=== PATIENT | female | born 1995 | race African-American/Black ===

== ENCOUNTER 2018-10-03 15:08 | Inpatient (IN) | payer OTHER ==
[2018-10-03 16:00] LABS: APPEARANCE,URINE CLEAR; BILIRUBIN,URINE NEGATIVE (NEGATIVE); COLOR,URINE YELLOW; GLUCOSE, URINE NEGATIVE (NEGATIVE); KETONES,URINE NEGATIVE (NEGATIVE); LEUKOCYTE ESTERASE,URINE NEGATIVE (NEGATIVE); NITRITE,URINE NEGATIVE (NEGATIVE); PROTEIN,URINE NEGATIVE (NEGATIVE); URINE SPECIFIC GRAVITY 1.013; UROBILINOGEN,URINE NEGATIVE mg/dL (<2.0)
[2018-10-03 16:18] LABS: URINE AMPHETAMINES SCREEN NEGATIVE; URINE BARBITURATES SCREEN NEGATIVE; URINE BENZODIAZEPINES SCREEN NEGATIVE; URINE COCAINE SCREEN NEGATIVE; URINE MARIJUANA (THC) SCREEN NEGATIVE; URINE METHADONE SCREEN NEGATIVE; URINE PHENCYCLIDINE SCREEN NEGATIVE
[2018-10-03] MEDS ORDERED: RINGERS SOLUTION,LACTATED 1,000 ML IV PRN (16:34)
--- NOTE | 2018-10-03 16:47 | Admission Physical ---
Datetime Report Generated by CPN: 10/03/2018 16:46 CURRENT ADMISSION Chief Complaint: Uterine Contractions Indication for Induction: Not Applicable Admit Impression : Active Labor Admit Plan: Admit to Unit; Initiate Labor Protocol ALLERGIES Medication Allergies: No Medication Allergies: No Known Allergies (10/03/2018) Latex: No Latex Allergies OBSTETRICAL HISTORY EDC: 09/26/2018 00:00 : 1 Para: 0 Term: 0 : 0 SAB: 0 IAB: 0 Ectopic: 0 Livin Cesareans: 0 VBACs: 0 Multiple Births: 0 MEDICAL HISTORY Other Medical Diseases: Yes Medical History Comments: ULCERATIVE COLITIS PHYSICAL EXAM General: Normal HEENT: Deferred Neurologic: Normal Thyroid: Deferred Heart: Normal Lungs: Normal Breast: Deferred Back: Deferred Abdomen: Normal Genitourinary Exam: Normal Extremities: Normal DTRs: Deferred Pelvic Type: Adequate Vital Signs: Reviewed VAGINAL EXAM Dilatation: 3 Effacement: 100 Station: -1 Contraction Comments: 2-3 min MEMBRANES Membranes: Intact FETUS A EGA: 41.0 Monitoring: External US FHR- Baseline: 145 Variability: Moderate 6-25bpm Decelerations: None Presentation: Vertex Admit Comment: Hx Ulcerative Colitis Transfer from [place] 34 wks KAY by LMP Anatomy completed INFORMED CONSENT Assignment: Tessa Ro MD Signature: with User ID: [email or web address] : with User ID: [email or web address]
[2018-10-03 17:03] LABS: ABSOLUTE EOSINOPHILS # (AUTO) 0.1 10^3/uL (0.0-0.6); ABSOLUTE LYMPHOCYTES (AUTO) 1.8 10^3/uL (0.5-4.7); ABSOLUTE MONOCYTES (AUTO) 1.3 10^3/uL (0.1-1.4); ABSOLUTE NEUT (AUTO) 10.9 10^3/uL (1.7-8.2); BASOPHILS % (AUTO) 0.2 % (0-2); EOSINOPHILS % (AUTO) 0.4 % (0-6); HEMOGLOBIN 13.1 g/dL (12.0-15.5); LYMPHOCYTES % (AUTO) 12.9 % (13-45); MEAN CORPUSCULAR HEMOGLOBIN 31.1 pg (27.0-33.4); MEAN CORPUSCULAR HGB CONC 33.5 g/dL (32.0-36.0); MEAN CORPUSCULAR VOLUME 93 fl (80-97); MONOCYTES % (AUTO) 9.5 % (3-13); PLATELET COUNT 196 10^3/uL (150-450); RED CELL DISTRIBUTION WIDTH 14.6 % (11.5-14.0); TOTAL CELLS COUNTED % (AUTO) 100 %; WHITE BLOOD COUNT 14.2 10^3/uL (4.0-10.5)
[2018-10-03] MEDS ORDERED: OXYTOCIN 10 UNIT/ML VIAL ONE (17:31)
[2018-10-03] MEDS ORDERED: OXYTOCIN/NORMAL SALINE 20 UNIT/1,000 ML RTUINJ ONE (17:32)
[2018-10-03] MEDS ORDERED: LIDOCAINE 1% INJ-PF (10 MG/ML) 30 ML SDV ONE (17:32)
[2018-10-03] MEDS ORDERED: MISOPROSTOL 0.2 MG TABLET ONE (17:32)
[2018-10-03] MEDS ORDERED: EPHEDRINE SULFATE INJ 50 MG/1 ML AMPULE ONE (19:48)
[2018-10-03] MEDS ORDERED: BUPIVACAINE HCL 0.25 % INJ/PF (2.5 MG/1 ML) 30 ML VIAL ONE (19:48)
[2018-10-03] MEDS ORDERED: FENTANYL/BUPIVACAINE/NS/PF 300 MCG/150 ML RTUINJ EPI ONE (19:48)
[2018-10-04] MEDS ORDERED: PROMETHAZINE HCL 25 MG TABLET PO PRN (00:44)
[2018-10-04] MEDS ORDERED: DIBUCAINE 1% OINTMENT 56 GM TP PRN (00:44)
[2018-10-04] MEDS ORDERED: PROMETHAZINE HCL INJ 25 MG/1 ML VIAL IV PRN (00:44)
[2018-10-04] MEDS ORDERED: DIPHENHYDRAMINE HCL 25 MG CAPSULE PO PRN (00:44)
[2018-10-04] MEDS ORDERED: BENZOCAINE/MENTHOL AEROSOL SPRAY 56 ML TOP PRN (00:44)
[2018-10-04] MEDS ORDERED: NA PHOS,M-B/NA PHOS,DI-BA (ADULT) 133 ML ENEMA PR PRN (00:44)
[2018-10-04] MEDS ORDERED: MAGNESIUM HYDROXIDE SUSP 30 ML UDCUP PO PRN (00:44)
[2018-10-04] MEDS ORDERED: PROMETHAZINE HCL 25 MG SUPP.RECT PR PRN (00:44)
[2018-10-04] MEDS ORDERED: ACETAMINOPHEN 650 MG SUPP.RECT PR PRN (00:44)
[2018-10-04] MEDS ORDERED: GLYCERIN/WITCH HAZEL LEAF 1 EACH MED..WIPE TP PRN (00:44)
[2018-10-04] MEDS ORDERED: PSEUDOEPHEDRINE HCL 30 MG TABLET PO PRN (00:44)
[2018-10-04] MEDS ORDERED: ACETAMINOPHEN WITH CODEINE #3 TABLET PO PRN ×2 (00:44)
[2018-10-04] MEDS ORDERED: ZOLPIDEM TARTRATE 5 MG TABLET PO PRN (00:44)
[2018-10-04] MEDS ORDERED: DIPH/PERTUSS(ACELL)/TETANUS VAC/PF 0.5 ML SYR (>=10YO) IM PRN (00:44)
[2018-10-04] MEDS ORDERED: MEASLES,MUMPS&RUBELLA VACC/PF 0.5 ML VIAL SUBCUT PRN (00:44)
[2018-10-04] MEDS ORDERED: OXYTOCIN/NORMAL SALINE 20 UNIT/1,000 ML RTUINJ IV PRN (00:44)
--- NOTE | 2018-10-04 01:15 | Warning Signs in Babies ---
VOD Warning Signs Datetime Report Generated by [facility]: 10/04/2018 01:14 VOD#608 -Warning Signs in Babies: Needs to be viewed. (10/04/2018 00:45:Bonnie Menjivar RN)
[2018-10-04] MEDS ORDERED: ACETAMINOPHEN 325 MG TABLET ONE (02:44)
[2018-10-04] MEDS ORDERED: AMPICILLIN SOD/SULBACTAM 3 GM VIAL IV SCH (02:45)
[2018-10-04] MEDS ORDERED: AMPICILLIN SOD/SULBACTAM 3 GM VIAL ONE (02:45)
[2018-10-04] MEDS ORDERED: MISOPROSTOL 0.2 MG TABLET ONE (02:47)
[2018-10-04] MEDS ORDERED: AMPICILLIN SOD/SULBACTAM 3 GM VIAL IV PRN (02:51)
[2018-10-04] MEDS: AMPICILLIN SODIUM/SULBACTAM NA 3 GM in NORMAL SALINE 100 ML IV SCH ×3 (02:59→19:17)
[2018-10-04] MEDS: IBUPROFEN 800 MG TABLET PO SCH ×3 (06:59→23:21)
[2018-10-04] MEDS: DOCUSATE SODIUM 100 MG CAPSULE PO SCH ×2 (10:50→19:17)
[2018-10-04] MEDS: FERROUS SULFATE 325 MG TABLET PO SCH ×2 (10:50→19:17)
[2018-10-04] MEDS: FAMOTIDINE 20 MG TABLET PO SCH ×2 (10:50→23:21)
[2018-10-04] MEDS: PRENATAL VITAMIN W DHA CAPSULE PO SCH (10:50)
[2018-10-04] MEDS: SENNOSIDES/DOCUSATE 8.6-50 MG 1 EACH TABLET PO SCH (10:50)
--- NOTE | 2018-10-04 10:50 | PDOC PROGRESS REPORT ---
Subjective-OB Progress Note for:: 10/04/18 Subjective: Pt doing well, resting with at bedside. She reports light bleeding, reg diet this am and voiding without difficulty. Physical Exam (OB) Vital Signs: Temp Pulse Resp BP Pulse Ox 97.8 F 90 18 126/78 H 100 10/04/18 07:30 10/04/18 07:30 10/04/18 07:30 10/04/18 07:30 10/04/18 07:30 Intake & Output 10/03/18 10/04/18 10/05/18 06:59 06:59 06:59 Intake Total 100 1000 Balance 100 1000 Weight 86.9 kg - Lochia Lochia Amount: Small 10-25 ml Lochia Color: Rubra/Red - Abdomen Description: Soft, Round Hernia Present: No Fundal Description: Firm, Midline Fundal Height: u/u - u/2 Objective-Diagnostic Laboratory: 10/03/18 16:53 10/03/18 10/03/18 10/03/18 15:20 16:53 16:53 WBC 14.2 H RBC 4.20 Hgb 13.1 Hct 39.0 MCV 93 MCH 31.1 MCHC 33.5 RDW 14.6 H Plt Count 196 Seg Neutrophils % 77.0 Lymphocytes % 12.9 L Monocytes % 9.5 Eosinophils % 0.4 Basophils % 0.2 Absolute Neutrophils 10.9 H Absolute Lymphocytes 1.8 Absolute Monocytes 1.3 Absolute Eosinophils 0.1 Absolute Basophils 0.0 Urine Color YELLOW Urine Appearance CLEAR Urine pH 7.0 Ur Specific [place] 1.013 Urine Protein NEGATIVE Urine Glucose (UA) NEGATIVE Urine Ketones NEGATIVE Urine Blood NEGATIVE Urine Nitrite NEGATIVE Ur Leukocyte Esterase NEGATIVE Blood Type O POSITIVE Antibody Screen NEGATIVE Assessment and Plan(PN) - Time Spent with Patient Time with patient: Less than 15 minutes Medications reviewed and adjusted accordingly: Yes - Disposition Anticipated Discharge: Home Within: within 24 hours
[2018-10-05] MEDS: IBUPROFEN 800 MG TABLET PO SCH ×3 (05:59→22:14)
[2018-10-05 07:22] LABS: HEMATOCRIT 34.3 % (36.0-47.0); HEMOGLOBIN 11.5 g/dL (12.0-15.5); MEAN CORPUSCULAR HEMOGLOBIN 30.9 pg (27.0-33.4); MEAN CORPUSCULAR HGB CONC 33.4 g/dL (32.0-36.0); MEAN CORPUSCULAR VOLUME 93 fl (80-97); PLATELET COUNT 196 10^3/uL (150-450); RED BLOOD COUNT 3.71 10^6/uL (3.72-5.28); RED CELL DISTRIBUTION WIDTH 14.7 % (11.5-14.0); WHITE BLOOD COUNT 13.4 10^3/uL (4.0-10.5)
--- NOTE | 2018-10-05 09:04 | PDOC DISCHARGE SUMMARY ---
Final Diagnosis Discharge Date: 10/05/18 - Final Diagnosis (1) Active labor at term Is this a current diagnosis for this admission?: Yes (2) (normal spontaneous vaginal delivery) Is this a current diagnosis for this admission?: Yes Discharge Data - Discharge Medication Home Medications: No122/Iron/Folic Acid [ Multi Tablet] 1 tab PO DAILY 10/03/18 Reason(s) for Admission: Onset of Labor Procedures: NST Intrapartum Procedure(s): Spontaneous Vaginal Delivery - Diagnosis Test Laboratory: Temp Pulse Resp BP Pulse Ox 97.8 F 77 18 126/74 H 99 10/04/18 19:36 10/04/18 19:36 10/04/18 19:36 10/04/18 19:36 10/04/18 19:36 10/03/18 10/03/18 10/05/18 15:20 16:53 06:57 RBC 4.20 3.71 L Hgb 13.1 11.5 L Hct 39.0 34.3 L Urine Opiates Screen NEGATIVE - Discharge information/Instructions Discharge Activity: Balance Activity w/Rest, Pelvic Rest Discharge Diet: Regular Disposition: HOME, SELF-CARE Follow up with: [facility] in: 4, Weeks
[2018-10-05] MEDS: PRENATAL VITAMIN W DHA CAPSULE PO SCH (10:33)
[2018-10-05] MEDS: DOCUSATE SODIUM 100 MG CAPSULE PO SCH ×2 (10:33→17:19)
[2018-10-05] MEDS: FERROUS SULFATE 325 MG TABLET PO SCH ×2 (10:33→17:20)
[2018-10-05] MEDS: SENNOSIDES/DOCUSATE 8.6-50 MG 1 EACH TABLET PO SCH (10:33)
[2018-10-05] MEDS: FAMOTIDINE 20 MG TABLET PO SCH ×2 (10:33→22:14)
[2018-10-06] MEDS: IBUPROFEN 800 MG TABLET PO SCH ×2 (06:04→13:30)
[2018-10-06 08:38] VITALS: BP 126/78
[2018-10-06] MEDS: SENNOSIDES/DOCUSATE 8.6-50 MG 1 EACH TABLET PO SCH (09:43)
[2018-10-06] MEDS: DOCUSATE SODIUM 100 MG CAPSULE PO SCH (09:43)
[2018-10-06] MEDS: PRENATAL VITAMIN W DHA CAPSULE PO SCH (09:43)
[2018-10-06] MEDS: FERROUS SULFATE 325 MG TABLET PO SCH (09:44)
[2018-10-06] MEDS: FAMOTIDINE 20 MG TABLET PO SCH (09:44)
--- NOTE | 2018-10-06 10:18 | PDOC PROGRESS REPORT ---
Subjective-OB Progress Note for:: 10/06/18 Subjective: had discharge order since yesterday. not discharged only because baby did not go home yet. doing well. denies needs. will discharge to home today. Physical Exam (OB) Vital Signs: Temp Pulse Resp BP Pulse Ox 97.8 F 67 16 126/78 H 67 L 10/06/18 08:33 10/06/18 08:33 10/06/18 08:33 10/06/18 08:33 10/06/18 08:33 Intake & Output 10/05/18 10/06/18 10/07/18 06:59 06:59 06:59 Intake Total 1100 600 360 Balance 1100 600 360 - PIH/Pre-Eclampsia Clonus: Negative Headache: Absent Epigastric Pain: No Visual Changes: No - Lochia Lochia Amount: Scant < 10 ml Lochia Color: Rubra/Red - Abdomen Description: Tender, Soft, Flat Hernia Present: No Fundal Description: Firm, Midline Fundal Height: u/u - u/2 Objective-Diagnostic Laboratory: 10/05/18 06:57 Assessment and Plan(PN) - Time Spent with Patient Medications reviewed and adjusted accordingly: Yes - Disposition Anticipated Discharge: Home
--- NOTE | 2018-10-10 09:41 | Delivery Summary ---
Del Sum A-C Datetime Report Generated by CPN: 10/10/2018 09:40 DELIVERY PERSONNEL DELIVERY PERSONNEL: [id number] Delivery Doctor:: Tessa Ro MD Labor and Delivery Nurse:: Bonnie Menjivar RNarmament aircraft mechanic Nurse:: Ama Orlando RN Nursery Nurse:: Celina Lucero RN Nursery Nurse:: Karen Rodriguez RN MATERNAL INFORMATION Delivery Anesthesia: Epidural Medications After Delivery: Pitocin Bolus-Please Comment; Cytotec 800mcg Per Rectum/Vagina Meds After Delivery Comment: Pitocin 20 units/1000 mL NS bolus foloowing placenta Estimated Blood Loss (ml): 200 Maternal Complications: None LABOR SUMMARY EDC: 09/26/2018 00:00 No. Babies in Womb: 1 Attempted: No Labor Anesthesia: Epidural LABOR INFORMATION Reason for Induction: Not Applicable Onset of Labor: 10/03/2018 19:37 Complete Dilatation: 10/03/2018 23:48 Oxytocin: N/A Group B Beta Strep: NEGATIVE Antibiotics # of Doses: 0 Antibiotics Time of Last Dose: N/A Name of Antibiotic Given: N/A Steroids Given: None Reason Steroids Not Administered: Not Applicable MEMBRANES Membranes Rupture Method: Spontaneous Rupture of Membranes: 10/03/2018 20:17 Length of Rupture (hr): 4.25 Amniotic Fluid Color: Moderate Meconium Amniotic Fluid Amount: Large Amniotic Fluid Odor: None STAGES OF LABOR Stage 1 hr: 4 Stage 1 min: 11 Stage 2 hr: 0 Stage 2 min: 44 Stage 3 hr: 0 Stage 3 min: 3 Total Time in Labor hr: 4 Total Time in Labor min: 58 VAGINAL DELIVERY Episiotomy: None Laceration #1: None Laceration Extension #1: N/A Laceration Repair: Not Applicable Sponge Count Correct: N/A Sharps Count Correct: N/A CSECTION DELIVERY Primary Indication: N/A Secondary Indication: N/A CSection Incidence: N/A Labor: N/A Elective: N/A CSection Incision: N/A BABY A INFORMATION Infant Delivery Date/Time: 10/04/2018 00:32 Method of Delivery: Vaginal Method of Delivery: Vaginal Born in Route : No : N/A Forceps: N/A Vacuum Extraction: N/A Shoulder Dystocia : No PRESENTATION/POSITION BABY A Presentation: Cephalic Presentation: Cephalic Cephalic Presentation: Vertex Vertex Position: Occipital Anterior Breech Presentation: N/A PLACENTA INFORMATION BABY A Placenta Delivery Time : 10/04/2018 00:35 Placenta Method of Delivery: Spontaneous Placenta Method of Delivery: Spontaneous Placenta Status: Delivered SCORES BABY A Heart Rate 1 min: >100 bpm Resp Effort 1 min: Good Cry Reflex Irritability 1 min: Cough or Sneeze or Pulls Away Muscle Tone 1 min: Active Motion Color 1 min: Body [place], Extremities Blue SCORE 1 MIN: 9 Heart Rate 5 min: >100 bpm Resp Effort 5 min: Good Cry Reflex Irritability 5 min: Cough or Sneeze or Pulls Away Muscle Tone 5 min: Active Motion Color 5 min: Body [place], Extremities Blue SCORE 5 MIN: 9 INFORMATION BABY A Gestational Age at Delivery: 41.0 Gestational Status: Late Term- 41- 41.6 Weeks Outcome : Liveborn Infant Condition : Stable Sex: Female Infant Sex: Female IDENTIFICATION BABY A Verification Date/Time: 10/04/2018 00:40 ID Band Number: [id number] Mother's Name Verified: Yes Infant RN Verifying : rn kossmann Additional Verifying Personnel: rn uma WEIGHT/LENGTH BABY A Infant Birthweight (gm): 3560 Weight (lb): 7 Weight (oz): 14 Infant Length (in): 20.00 Length (cm): 50.80 CORD INFORMATION BABY A No. Cord Vessels: 3 Nuchal Cord : N/A Cord Blood Taken: Yes-For Eval (Mom's Blood Type - or O+) Suction: None ASSESSMENT BABY A Infant Complications: Meconium Physical Findings at Delivery: Within Normal Limits Physical Findings- Other: see initial nursery assessment Respirations: Appears Normal Supervisor [employer] Coating/ALS Called : No Infant Care By: ISIDORO Cooper RN Transferred To: Remains with Mother SIGNATURES Signature: with User ID: [email or web address] : I was personally available for consultation and serving as supervising physician for the MLP.
== END 2018-10-06 13:55 | disposition home or self-care (01) | DRG 807 ==
LOC: LC 15:08 → LR 16:39 → 2S 10-04 03:28
PROVIDERS: ADMIT Obstetrics & Gynecology; ATTEND Obstetrics & Gynecology
PROC: 10E0XZZ Delivery of Products of Conception, External Approach (ICD-10-PCS; principal; 2018-10-04)
DX: O77.0 Labor and delivery complicated by meconium in amniotic fluid (principal); Z37.0 Single live birth; Z3A.41 41 weeks gestation of pregnancy
CPT/HCPCS: 36415; 80307; 81005; 85025; 85027; 86592; 86850; 86900; 86901; J0295; J2590; J3010; J3490; J7050

== ENCOUNTER 2018-11-21 07:55 | Day surgery (SDC) | payer OTHER ==
[~2018-11-21 07:55] MED LIST: PROPOFOL INJ 200 MG/20 ML VIAL IV ONE
[2018-11-21] MEDS ORDERED: PROPOFOL INJ 200 MG/20 ML VIAL IV ONE (09:40)
[2018-11-21 10:16] VITALS: BP 116/83
--- NOTE | 2018-11-21 11:51 | Operative Report ---
Operative Report DATE OF SURGERY: 11/21/18 Operative Report: The risks, benefits and alternatives of the procedure including the risk of bleeding, perforation requiring surgery have been explained to the patient in detail and informed consent has been obtained. The patient is taken back to the endoscopy suite and placed in the left, lateral decubital position. Timeout was called. Propofol medication is administered. A rectal examination is done which did not reveal any masses, tears or fissures. An Olympus videoscope was introduced into the patient's rectum. The scope was then carefully advanced all the way to the cecum. The cecum was identified by the usual anatomical landmarks including the ileocecal valve as well as the appendiceal office. Photodocumentation is obtained. The scope was then sequentially pulled back via the various segments of the colon including the ascending colon, hepatic flexu re, transverse colon, splenic flexure, descending colon finding to the rectosigmoid portions of the colon. Retroflexion maneuvers performed. PREOPERATIVE DIAGNOSIS: Blood in stool, colorectal cancer screening POSTOPERATIVE DIAGNOSIS: There appears to be left-sided as well as right-sided colon inflammation status post biopsy. Internal hemorrhoids OPERATION: Colonoscopy with biopsy SURGEON: NATA MIDDLETON ANESTHESIA: LMAC TISSUE REMOVED OR ALTERED: As noted above. COMPLICATIONS: None. ESTIMATED BLOOD LOSS: None. INTRAOPERATIVE FINDINGS: As noted above. PROCEDURE: Patient tolerated the procedure well. No immediate postprocedure complications are noted. Patient is discharged in good condition. Discharge date 11/21/2018. Discharge diet: Regular. Discharge activity: Regular. 2 to 3-week follow-up to discuss findings. If biopsies are negative consider a 10-year surveillance colonoscopy. Wait on the pathology.
== END 2018-11-21 10:20 | disposition home or self-care (01) ==
LOC: END 07:55
PROVIDERS: ATTEND Internal Medicine Gastroenterology
DX: Z80.0 Family history of malignant neoplasm of digestive organs (principal); K62.5 Hemorrhage of anus and rectum; K52.9 Noninfective gastroenteritis and colitis, unspecified; K64.8 Other hemorrhoids
CPT/HCPCS: 88305 ×2; J2704; 45380

== ENCOUNTER 2019-09-06 06:46 | Emergency (ER) | payer OTHER ==
[2019-09-06] MEDS ORDERED: NORMAL SALINE 1000 ML 1,000 ML IV ONE (07:49)
[2019-09-06 08:56] LABS: ABSOLUTE EOSINOPHILS # (AUTO) 0.3 10^3/uL (0.0-0.6); ABSOLUTE LYMPHOCYTES (AUTO) 1.6 10^3/uL (0.5-4.7); ABSOLUTE MONOCYTES (AUTO) 0.6 10^3/uL (0.1-1.4); ABSOLUTE NEUT (AUTO) 5.1 10^3/uL (1.7-8.2); BASOPHILS % (AUTO) 0.5 % (0-2); EOSINOPHILS % (AUTO) 3.7 % (0-6); HEMATOCRIT 40.9 % (36.0-47.0); HEMOGLOBIN 14.2 g/dL (12.0-15.5); LYMPHOCYTES % (AUTO) 21.1 % (13-45); MEAN CORPUSCULAR HGB CONC 34.8 g/dL (32.0-36.0); MEAN CORPUSCULAR VOLUME 89 fl (80-97); MONOCYTES % (AUTO) 7.8 % (3-13); PLATELET COUNT 210 10^3/uL (150-450); RED BLOOD COUNT 4.58 10^6/uL (3.72-5.28); RED CELL DISTRIBUTION WIDTH 15.1 % (11.5-14.0); SEGMENTED NEUTROPHILS % (AUTO) 66.9 % (42-78); TOTAL CELLS COUNTED % (AUTO) 100 %; WHITE BLOOD COUNT 7.7 10^3/uL (4.0-10.5)
[2019-09-06 09:03] LABS: INTERNATIONAL RATION (INR) 1.02; PARTIAL THROMBOPLASTIN TIME 29.8 SEC (23.5-35.8); PROTHROMBIN TIME 13.4 SEC (11.4-15.4)
[2019-09-06 09:24] LABS: ALBUMIN 4.7 g/dL (3.5-5.0); ALKALINE PHOSPHATASE 73 U/L (38-126); ANION GAP 5 (5-19); ASPARTATE AMINO TRANSFERASE 25 U/L (14-36); BILIRUBIN,TOTAL 1.3 mg/dL (0.2-1.3); BLOOD UREA NITROGEN 16 mg/dL (7-20); CALCIUM 9.6 mg/dL (8.4-10.2); CARBON DIOXIDE 29 mmol/L (22-30); CHLORIDE 106 mmol/L (98-107); GLUCOSE 86 mg/dL (75-110); POTASSIUM 4.2 mmol/L (3.6-5.0); TOTAL PROTEIN 7.8 g/dL (6.3-8.2)
[2019-09-06 10:04] LABS: APPEARANCE,URINE CLEAR; BILIRUBIN,URINE NEGATIVE (NEGATIVE); COLOR,URINE YELLOW; GLUCOSE, URINE NEGATIVE (NEGATIVE); KETONES,URINE NEGATIVE (NEGATIVE); LEUKOCYTE ESTERASE,URINE NEGATIVE (NEGATIVE); NITRITE,URINE NEGATIVE (NEGATIVE); PROTEIN,URINE NEGATIVE (NEGATIVE); URINE SPECIFIC GRAVITY 1.011; UROBILINOGEN,URINE NEGATIVE mg/dL (<2.0)
--- NOTE | 2019-09-06 11:08 | RADIOLOGY REPORT (SQ) ---
EXAM DESCRIPTION: CT ABD/PELVIS WITH IV ORAL IMAGES COMPLETED DATE/TIME: 09/06/2019 10:57 am REASON FOR STUDY: abd pain/rectal bleeding COMPARISON: None. TECHNIQUE: CT scan of the abdomen and pelvis performed using helical scanning technique with dynamic intravenous contrast injection. No oral contrast. Images reviewed with lung, soft tissue, and bone windows. Reconstructed coronal and sagittal MPR images reviewed. Delayed images for evaluation of the urinary system also acquired. All images stored on PACS. All CT scanners at this facility use dose modulation, iterative reconstruction, and/or weight based d osing when appropriate to reduce radiation dose to as low as reasonably achievable (ALARA). [facility]: Dose Right [facility]: CareDose [facility]: Dose Right [facility]: Teradose 4D [facility]: Pinn[employer]Care RENAL FUNCTION: GFR > 60. RADIATION DOSE: CT Rad equipment meets quality standard of care and radiation dose reduction techniq ues were employed. CTDIvol: NaN mGy. DLP: 0 mGy-cm.. LIMITATIONS: None. FINDINGS: LOWER CHEST: No significant findings. No nodules or infiltrates. LIVER: Normal size. No masses. No dilated ducts. SPLEEN: Normal size. No focal lesions. PANCREAS: No masses. No significant calcifications. No adjacent inflammation or peripancreatic fluid collections. Pancreatic duct not dilated. GALLBLADDER: No identified stones by CT criteria. No inflammatory changes to suggest cholecystitis. ADRENAL GLANDS: No significant masses or asymmetry. RIGHT KIDNEY AND URETER: No solid masses. No significant calcifications. No hydronephrosis or hyd roureter. LEFT KIDNEY AND URETER: No solid masses. No significant calcifications. No hydronephrosis or hydr oureter. AORTA AND VESSELS: No aneurysm. No dissection. Renal arteries, SMA, celiac without stenosis. RETROPERITONEUM: No retroperitoneal adenopathy, hemorrhage or masses. BOWEL AND PERITONEAL CAVITY: No masses or inflammatory changes. No free fluid or peritoneal masses. APPENDIX: Normal. PELVIS: IUD. 4 cm cyst right ovary. No free fluid. ABDOMINAL WALL: No masses. No hernias. BONES: No significant or acute findings. OTHER: No other significant finding. IMPRESSION: Right ovarian cyst. No explanation for rectal bleeding. TECHNICAL DOCUMENTATION: JOB ID: [id number] Quality ID # [id number]: Final reports with documentation of one or more dose reduction techniques (e.g., Au tomated exposure control, adjustment of the mA and/or kV according to patient size, use of iterative reconstruction technique) 2010 [email or web address]- All Rights Reserved Reading location - IP/workstation name: [email or web address]
[2019-09-06 12:25] VITALS: BP 120/77
--- NOTE | 2019-09-06 12:53 | ER Document Report ---
Entered by GIOVANY SHARMA SCRIBE 09/06/19 0808 Acting as scribe for:JAMES FINLEY MD ED General - General Chief Complaint: Rectal Bleeding Stated Complaint: ABDOMINAL PAIN/RECTAL BLEEDING Time Seen by Provider: 09/06/19 07:20 Primary Care Provider: JENSEN FATIMA PA-C [Primary Care Provider] - Follow up as needed Information source: Patient Notes: This 23-year-old female presents to the emergency department complaining of rectal bleeding that began three days ago. Patient explains that there is associated suprapubic pain and poor appetite. Patient explains that she has had similar symptoms in the past when she was diagnosed with Ulcerative Colitis. Patient states that this diagnosis and work-up was in [place] three years ago. Patient said that when she moved to [place], she had another work-up done with a colonoscopy with negative results for ulcerative colitis. Patient said that she was taken off of her medications and her rectal bleeding completely stopped. Patient said that a week ago, she began to have abdominal pain and went to see her PCP. Patient stated that they reviewed her chart and gave her suppositories. She said that after taking the suppositories prescribed, she started having rectal bleeding. Patient describes the bleeding as bright red with dark blood clots. Patient states that her last normal menstrual cycle was three days ago and that her cycles have been light since she got her IUD a year ago. Patient denies fever, chills, nausea, vomiting, pain with intercourse, vaginal bleeding and . TRAVEL OUTSIDE OF THE [place] IN LAST 30 DAYS: No - Related Data Allergies/Adverse Reactions: No Known Allergies Allergy (Verified 10/03/18 15:22) Past Medical History - General Information source: Patient - Social History Smoking Status: Never Smoker Cigarette use (# per day): No Chew tobacco use (# tins/day): No Frequency of alcohol use: Occasional Drug Abuse: None Family History: Reviewed & Not Pertinent Patient has homicidal ideation: No GI Medical History: Reports: Hx Ulcerative Colitis Surgical Hx: Negative - Immunizations Hx Diphtheria, Pertussis, Tetanus Vaccination: No Review of Systems - Review of Systems Constitutional: See HPI. denies: Chills, Fever EENT: No symptoms reported Cardiovascular: No symptoms reported Respiratory: No symptoms reported Gastrointestinal: See HPI, Abdominal pain, Poor appetite, Rectal bleeding. denies: Nausea, Vomiting Genitourinary: No symptoms reported Female Genitourinary: See HPI, Last menstrual period. denies: , Vaginal bleeding, Painful intercourse Musculoskeletal: No symptoms reported Skin: No symptoms reported Hematologic/Lymphatic: No symptoms reported Neurological/Psychological: No symptoms reported -: Yes All other systems reviewed and negative Physical Exam - Vital signs Vitals: Temp Pulse Resp BP Pulse Ox 97.8 F 69 18 135/95 H 100 09/06/19 06:52 09/06/19 06:52 09/06/19 06:52 09/06/19 06:52 09/06/19 06:52 - Notes Notes: Physical Exam: General: Alert, appears well. HEENT: Normocephalic. Atraumatic. PERRL. Extraocular movements intact. O ropharynx clear. Neck: Supple. Non-tender. Respiratory: No respiratory distress. Clear and equal breath sounds bilaterally. Cardiovascular: Regular rate and rhythm. Abdominal: Normal Inspection. Non-tender. No distension. Normal Bowel Sounds. Rectal: Tight sphincter. No internal hemorrhoids appreciated. A small amount of blood and mucous on tip of finger. Guaiac positive. Back: No gross abnormalities. Extremities: Moves all four extremities. Upper extremities: Normal inspection. Normal ROM. Lower extremities: Normal inspection. No edema. Normal ROM. Neurological: Normal cognition. AAOx4. Normal speech. Psychological: Normal affect. Normal Mood. Skin: Warm. Dry. Normal color. Course - Re-evaluation Re-evalutation: 09/06/19 12:39 Patient resting comfortably not showing any signs of distress. 09/06/19 12:41 Discussed with patient that most likely her diagnosis is rectal bleeding from internal hemorrhoids. Also advised patient I will place her on BNO suppositories along with Anusol HC cream to assist her in treating her internal hemorrhoids. - Vital Signs Vital signs: Temp Pulse Resp BP Pulse Ox 98.1 F 59 L 18 120/77 100 09/06/19 12:24 09/06/19 12:24 09/06/19 12:24 09/06/19 12:24 09/06/19 12:24 - Laboratory Result Diagrams: 09/06/19 08:45 09/06/19 08:45 Laboratory results interpreted by me: 09/06/19 09/06/19 08:45 08:45 RDW 15.1 H Lactic Acid 0.6 L Laboratory results essentially unremarkable within normal limits. - Diagnostic Test Radiology reviewed: Image reviewed, Reports reviewed Radiology results interpreted by me: 09/06/19 12:41 CT scan of abdomen and pelvis with oral and IV contrast disclose no evidence of colitis or any inflammatory or infectious disease noted. No obstruction. Discharge - Discharge Clinical Impression: Rectal bleeding, Internal hemorrhoids Condition: Stable Disposition: HOME, SELF-CARE Additional Instructions: Hemorrhoids You have hemorrhoids. These are formed by enlargement of veins around the anus. The cause is increased pressure in the veins, from or straining at bowel movements. Hemorrhoids often cause itching and bleeding with bowel movements. When a hemorrhoid becomes clotted, severe pain and swelling result. Soothing creams and suppositories are often prescribed. Warm sitz-baths may also decrease pain, swelling, and itching. Eat a high-fiber diet. Stool softeners such as Metamucil will help. Keep the area very clean. Medicated cleansing pads (such as Tucks) are useful after bowel movements. A hose-mounted shower unit (like a shower ma ssager at low water pressure) can be used to clean around tender hemorrhoid tags. You should call the doctor or return if you develop fever, increasing pain, or an enlarging mass around the anus, or if you simply fail to improve with treatment. Prescriptions: Hydrocortisone [Anusol-Hc] 30 gm RC BID 7 Days #30 cream.gm. Opium/Belladonna Alkaloids [B & O 16.2-30 mg Supp] 1 supp.rect [place] QID PRN 7 Days #28 supp.rect PRN Reason: Referrals: JENSEN FATIMA PA-C [Primary Care Provider] - Follow up as needed I personally performed the services described in the documentation, reviewed and edited the documentation which was dictated to the scribe in my presence, and it accurately records my words and actions.
== END 2019-09-06 13:04 | disposition home or self-care (01) ==
LOC: ER 06:46
DX: K62.5 Hemorrhage of anus and rectum (principal); K64.8 Other hemorrhoids; R10.2 Pelvic and perineal pain
CPT/HCPCS: 99284; 96360; 96361; 36415; 83605; 83690; 84703; 85025; 85610; 85730; 82270; 80053; 81001; 74177; J7030